=== PATIENT | male | born 1955 | race Caucasian/White ===

== ENCOUNTER 2018-05-18 17:19 | Emergency (ER) | payer OTHER ==
[~2018-05-18] VITALS: Ht 170.2 cm; Wt 65.8 kg
[~2018-05-18 17:19] MED LIST: AGGRENOX 25 MG-1 CAP PO; SIMVASTATIN40 MG PO
[2018-05-18 17:52] LABS: ABSOLUTE BASOPHIL COUNT 0 /CUMM (0.0-0.2); ABSOLUTE EOSINOPHIL COUNT 0.1 /CUMM (0.0-0.7); ABSOLUTE GRANULOCYTE CT 3.6 /CUMM (1.4-6.5); ABSOLUTE LYMPH COUNT 1.4 /CUMM (1.2-3.4); ABSOLUTE MONOCYTE COUNT 0.5 /CUMM (0.10-0.60); BASOPHIL % 0.8 % (0.0-2.0); EOSINOPHIL % 2.5 % (0-5); GRANULOCYTE % 63.3 % (42.2-75.2); MEAN CORPUSCULAR HGB 31.9 PG (27.0-31.0); MEAN CORPUSCULAR HGB CONC 34.1 G/DL (33.0-37.0); MEAN CORPUSCULAR VOLUME 93.5 FL (80.0-94.0); MEAN PLATELET VOLUME 6.3 FL (7.4-10.4); PLATELET COUNT 230 /CUMM (130-400); RBC DISTRIBUTION WIDTH 14.1 % (11.5-14.5); WHITE BLOOD CELL COUNT 5.7 /CUMM (4.8-10.8)
--- NOTE | 2018-05-18 18:18 | RADIOLOGY REPORT ---
EXAMINATION: XR CHEST CLINICAL INFORMATION: Chest pain. COMPARISON: Chest x-ray 01/09/2016 TECHNIQUE: 2 views of the chest were obtained. FINDINGS: No significant abnormality is noted involving the heart, lungs, mediastinum, bony thorax or soft tissues. There are multiple healed right posterior rib fractures, fifth through eighth right ribs. IMPRESSION: Unremarkable examination.
--- NOTE | 2018-05-18 19:33 | ED GENERAL ADULT ---
History of Present Illness General Chief Complaint: Chest Pain Stated Complaint: SIB DR PACHECO ELEVATED BP, IRRATIC HR, CP Source: patient Exam Limitations: no limitations Vital Signs & Intake/Output Vital Signs & Intake/Output Vital Signs Date Time Temp Pulse Resp B/P B/P Pulse O2 O2 Flow FiO2 Mean Ox Delivery Rate 05/18 2241 97.8 88 20 136/82 98 Room Air 05/18 1724 98.4 97 18 144/78 98 Room Air Allergies Coded Allergies: NO KNOWN ALLERGIES (09/23/12) Reconcile Medications Dipyridamole W/ Aspirin (Aggrenox 25 MG-200 MG Capsule) 25 MG/200 MG CAP 1 CAP PO BID BLOOD THINNER (Reported) Simvastatin 40 MG TABLET 1 TAB PO QPM CHOLESTEROL (Reported) Triage Note: 62 YO MALE TO TRIAGE FOR EVAL OF CP AND INCREASE IN FEELING TIRED WITH AMBULATION. DENIES SOB. PT HX OF CVA WITH SOME DYSPHAGIA. PT DENIES ABD PAIN. PT UNABLE TO STATE WHEN PAIN STARTED Triage Nurses Notes Reviewed? yes HPI: Mr. Cardoso is a 62-year-old male with past history of stroke, who is brought in today by his for chest discomfort. He only complained of the discomfort today, but admits that he has been having it for weeks off and on. Furthermore, he states that the pain is worse when he is exerting himself at work. He denies any shortness of breath, nausea or diaphoresis. At present the patient states that the pain is not ongoing. He has expressive aphasia which limits his ability to communicate his HPI/ROS, but his is able to reliably relate his thoughts and he nods in confirmation. Triage ECG is nonischemic. Past History Travel History Traveled to [place] past 21 day No Medical History Any Pertinent Medical History? 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 Yes Review of Systems Review of Systems Constitutional: Reports: see HPI. EENTM: Reports: no symptoms. Respiratory: Reports: no symptoms. Cardiovascular: Reports: chest pain. GI: Reports: no symptoms. Genitourinary: Reports: no symptoms. Musculoskeletal: Reports: no symptoms. Skin: Reports: no symptoms. Neurological/Psychological: Reports: no symptoms. Hematologic/Endocrine: Reports: no symptoms. Immunologic/Allergic: Reports: no symptoms. All Other Systems: Reviewed and Negative Physical Exam Physical Exam General Appearance: well developed/nourished, no apparent distress Comments: HEENT: Inspection of the head reveals a normocephalic cranium with no signs of trauma. Ophtho: Extraocular muscles are intact and pupils are equal and reactive to light bilaterally with no afferent pupillary defect. The sclera are noninjected , and there is no obvious discharge. Neck: The trachea is midline, there is no obvious asymmetry or mass over the thyroid, and there is no wincing on palpation of the midline cervical spine. Respiratory: The lungs are clear and equal to auscultation bilaterally without wheezes, rales, or rhonchi. The patient exhibits no signs of labored breathing. Cardiac: Active episodic transient chest discomfort. Regular rhythm and non- tachycardic without appreciable murmurs on auscultation. No obvious JVD. GI: Examination of the abdomen reveals no significant wincing on deep palpation. : Deferred Neuro: Focused neurologic examination was attempted, but secondary to the patient's expressive aphasia and chronic deficits, it was somewhat limited. Features that were obtainable included chronic expressive aphasia, equal pupils and a lack of gross focal motor abnormality on patient's limited passive motion. Behavioral: Calm. Dermatologic: Dermatologic examination reveals no diffuse rashes or exanthems, no petechiae, no ecchymoses, and no other signs of erythema or infection. Core Measures ACS in differential dx? Yes CVA/TIA Diagnosis: Yes Sepsis Present: No Sepsis Focused Exam Completed? No Progress Differential Diagnoses I considered the following diagnoses in my evaluation of the patient: STEMI, non -STEMI, acute coronary syndrome, Prinzmetal's angina, unstable angina, stable angina, aortic dissection, pneumothorax, pneumonia, pleuritis, pericarditis, myocarditis, among many other possibilities. Plan of Care: Orders Procedure Date/time Status TROPONIN LEVEL 05/18 2034 Complete EKG 05/18 2034 Active MAGNESIUM 05/18 1730 Complete TROPONIN LEVEL 05/18 1725 Complete COMPREHENSIVE METABOLIC PANEL 05/18 1725 Complete CBC WITHOUT DIFFERENTIAL 08/20 1725 Complete EKG 05/18 1725 Active Laboratory Tests 05/18/18 2106: Troponin I < 0.01 05/18/18 1732: Magnesium Cancelled 05/18/18 1730: Anion Gap 8, Estimated GFR > 60, BUN/Creatinine Ratio 18.8, Glucose 98, Calcium 9.0, Magnesium 2.1, Total Bilirubin 0.3, AST 71 H, ALT 63, Alkaline Phosphatase 94, Troponin I < 0.01, Total Protein 7.0, Albumin 4.0, Globulin 3.0, Albumin/ Globulin Ratio 1.3, CBC w Diff NO MAN DIFF REQ, RBC 4.50 L, MCV 93.5, MCH 31.9 H, MCHC 34.1, RDW 14.1, MPV 6.3 L, Gran % 63.3, Lymphocytes % 24.2, Monocytes % 9.2, Eosinophils % 2.5, Basophils % 0.8, Absolute Granulocytes 3.6, Absolute Lymphocytes 1.4, Absolute Monocytes 0.5, Absolute Eosinophils 0.1, Absolute Basophils 0 CXR Impression: no acute abnormality Initial ED EKG: Initial ecg shows normal sinus rhythm, rate of 90, normal IA, QT, and QTc intervals, leftward axis, no ST segment changes, no priors for comparison. No STEMI. Repeat EKG: unchanged Comments: Patient with history of stroke presents today with chest pain that is worsened on exertion at work. I was significant concerned for acute coronary syndrome/ STEMI/non-STEMI, so a workup was undertaken. Thankfully, his initial ECG and troponin were both negative, however I recommended hospitalization given his high risk status and exertional chest pain and he adamantly refused much to the dismay of his . I was able to convince the patient to stay for a repeat troponin and ECG, which was again thankfully negative. I again recommended that he be hospitalized, and even called his fisher lobster Dr. Saucedo to discuss the case. I received a call back from the on-call fisher lobster Dr. Lopez, who agreed with my assessment. Ultimately, the patient exhibited excellent understanding of the risks of being discharged, and agreed to take them upon himself. I again offered hospitalization and he again refused. I coordinated with his fisher lobster close outpatient follow-up in the office within the next 24-48 hours, and he indicated that he would be able to follow-up. I reiterated that if he had a change of heart that we wished to see him back here for admission and that she he should not hesitate to do so. Patient ambulated from the ED under his own power in stable condition. Departure Departure Time of Disposition: 2220 Disposition: HOME OR SELF CARE Condition: Stable Clinical Impression Primary Impression: Chest pain Qualifiers: Chest pain type: unspecified Qualified Code: R07.9 - Chest pain, unspecified Referrals: Kevin Pacheco MD (PCP/Family) Additional Instructions: Your chest pain is concerning, and while we understand that you did not want to stay in the hospital overnight, we ask that you call your fisher lobster first thing in the morning to be seen in the office. We called and made them aware of your symptoms. Please return to the emergency department in the meantime for any new or worsening symptoms or any change in your condition. Departure Forms: Customer Survey General Discharge Information Critical Care Note Critical Care Note Critical Care Time: non-applicable
[2018-05-18 22:41] VITALS: BP 136/82
== END 2018-05-18 22:42 ==
LOC: ERH 17:19
PROVIDERS: Emergency Medicine
DX: R07.89 Other chest pain (principal)
CPT/HCPCS: 71046; 93005; 93010